=== PATIENT | female | born 1940 | race Caucasian/White ===

== ENCOUNTER 2018-10-11 02:30 | Emergency (ER) | payer MEDICARE, OTHER ==
[~2018-10-11] VITALS: Ht 162.6 cm; Wt 90.7 kg
--- OUTSIDE RECORDS SUMMARY | 2018-10-11 02:34 | XMS ---
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 Walter has no Care Guidelines for this patient. Hima VISIT COUNT (12 MO.) 1 NEDA Tran TOTAL 1 NOTE: Visits indicate total known visits. ED/UCC VISIT TRACKING (12 MO.) 10/11/2018 02:31 NEDA Hernandez [place] TYPE: Emergency COMPLAINT: - BODY PAIN,MUSCLE SPASMS INPATIENT VISIT TRACKING (12 MO.) No inpatient visits to display in this time frame [email or web address]
[2018-10-11] MEDS ORDERED: BIOTIN5000 MCG PO (02:44)
[2018-10-11] MEDS ORDERED: TRIPLE OMEGA C400 MG PO (02:44)
[2018-10-11] MEDS ORDERED: DOXYCYCLINE HY100 MG PO (02:44)
[2018-10-11] MEDS ORDERED: ATENOLOL50 MG PO (02:45)
[2018-10-11] MEDS ORDERED: ZOCOR40 MG PO (02:45)
[2018-10-11] MEDS ORDERED: K-TAB ER20 MEQ PO (02:46)
[2018-10-11] MEDS ORDERED: FUROSEMIDE20 MG PO (02:46)
[2018-10-11] MEDS ORDERED: TRIBENZOR 20-51 EACH PO (02:46)
[2018-10-11] MEDS ORDERED: ASPIRIN81 MG PO (02:47)
[2018-10-11] MEDS ORDERED: CLONAZEPAM0.5 MG PO (02:47)
[2018-10-11] MEDS ORDERED: NORCO 5-325 TA1 EACH PO (04:21)
[2018-10-11] MEDS ORDERED: MELOXICAM15 MG PO (04:21)
== END 2018-10-11 04:35 | disposition home or self-care (01) ==
LOC: ED 02:30
DX: M25.551 Pain in right hip (principal); I10 Essential (primary) hypertension; E78.5 Hyperlipidemia, unspecified; Z87.891 Personal history of nicotine dependence; Z95.1 Presence of aortocoronary bypass graft; Z88.2 Allergy status to sulfonamides; Z79.82 Long term (current) use of aspirin; Z79.899 Other long term (current) drug therapy
CPT/HCPCS: 73502; 96372; 99283-25; J1885

== ENCOUNTER 2019-09-19 03:04 | Emergency (ER) | payer MEDICARE, OTHER ==
[~2019-09-19] VITALS: Ht 162.6 cm; Wt 90.7 kg
[~2019-09-19 03:04] MED LIST: ASPIRIN81 MG PO; ATENOLOL50 MG PO; BIOTIN5000 MCG PO; CLONAZEPAM0.5 MG PO; DOXYCYCLINE HY100 MG PO; FUROSEMIDE20 MG PO; K-TAB ER20 MEQ PO; MELOXICAM15 MG PO; NORCO 5-325 TA1 EACH PO; TRIBENZOR 20-51 EACH PO; TRIPLE OMEGA C400 MG PO; ZOCOR40 MG PO
--- OUTSIDE RECORDS SUMMARY | 2019-09-19 03:06 | XMS ---
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 EMichelle VISIT COUNT (12 MO.) 2 NEDA Tran TOTAL 2 NOTE: Visits indicate total known visits. 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
[2019-09-19] MEDS ORDERED: NORCO 5-325 TA1 EACH PO (05:24)
== END 2019-09-19 06:52 | disposition home or self-care (01) ==
LOC: ED 03:04
DX: S42.214A Unspecified nondisplaced fracture of surgical neck of right humerus, initial encounter for closed fracture (principal); W01.198A Fall on same level from slipping, tripping and stumbling with subsequent striking against other object, initial encounter; I10 Essential (primary) hypertension; E78.5 Hyperlipidemia, unspecified; Z87.891 Personal history of nicotine dependence; Z88.2 Allergy status to sulfonamides; Z79.899 Other long term (current) drug therapy; Z79.82 Long term (current) use of aspirin
CPT/HCPCS: 71045; 72040; 73030; 73060; 73070; 90715; 93971; 99284-25; J1170

== ENCOUNTER 2019-09-21 22:59 | Observation (INO) | payer MEDICARE, OTHER ==
[~2019-09-21] VITALS: Ht 162.6 cm; Wt 96.6 kg
[~2019-09-21 22:59] MED LIST changes: +ASPIR 8181 MG PO; -ASPIRIN81 MG PO; +BENICAR HCT 401 EAC1 PO; -TRIBENZOR 20-51 EACH PO
--- OUTSIDE RECORDS SUMMARY | 2019-09-21 23:02 | XMS ---
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 Hima VISIT COUNT (12 MO.) 3 [facility] TOTAL 3 NOTE: Visits indicate total known visits. ED/UCC VISIT TRACKING (12 MO.) 09/21/2019 22:59 NEDA Hernandez OR TYPE: Emergency COMPLAINT: - FALL 09/19/2019 03:04 NEDA Hernandez OR TYPE: Emergency COMPLAINT: - SHOULDER PAIN DIAGNOSES: - Essential (primary) hypertension - snf (current) use of aspirin - Fall same lev from slip/trip w strike agnst oth object, init - Pain in right shoulder - Hyperlipidemia, unspecified - Allergy status to sulfonamides status - Other longterm (current) drug therapy - Personal history of nicotine dependence - Unsp nondisp fx of surgical neck of right humerus, init 10/11/2018 02:31 NEDA Hernandez [place] TYPE: Emergency COMPLAINT: - R SIDE/HIP PAIN,NON INJURY DIAGNOSES: - snf (current) use of aspirin - Pain in right hip - Presence of aortocoronary bypass graft - Personal history of nicotine dependence - Allergy status to sulfonamides status - Essential (primary) hypertension - Hyperlipidemia, unspecified - 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
--- NOTE | 2019-09-22 08:01 | EKG ---
[facility] [address] [place], [place] [address] Signed Normal sinus rhythm Normal ECG No previous ECGs available Confirmed by CB HART MD ([id number]) on 09/22/2019 8:01:21 AM Electronically Signed By: CB HART MD 09/22/19 0801 PATIENT NAME: LIZANDRO BARTHOLOMEW LEEANN Electrocardiogram DATE OF : 36 PHYSICIAN: CB HART MD REPORT #: [id number] REPORT IS CONFIDENTIAL AND NOT TO BE RELEASED WITHOUT AUTHORIZATION
[2019-09-25] MEDS ORDERED: ATENOLOL50 MG PO ×2 (15:06→15:51)
[2019-09-25] MEDS ORDERED: NORCO 5-325 TA1 EACH PO (15:06)
[2019-09-25] MEDS ORDERED: CLONAZEPAM0.5 MG PO (15:07)
[2019-09-25] MEDS ORDERED: TYLENOL325 MG PO (15:08)
[2019-09-25] MEDS ORDERED: SENNA8.6 MG PO (15:08)
[2019-09-25] MEDS ORDERED: LACTULOSE10 GM/15 M PO (15:09)
[2019-09-25] MEDS ORDERED: TRIPLE OMEGA C400 MG PO (15:51)
[2019-09-25] MEDS ORDERED: BIOTIN5000 MCG PO (15:51)
[2019-09-25] MEDS ORDERED: ZOCOR40 MG PO (15:51)
[2019-09-25] MEDS ORDERED: ASPIR 8181 MG PO (15:51)
== END 2019-09-25 16:15 | disposition home health service (06) ==
LOC: ED 22:59 → MS 23:00
PROVIDERS: ADMIT Internal Medicine
DX: S42.211A Unspecified displaced fracture of surgical neck of right humerus, initial encounter for closed fracture (principal); N28.9 Disorder of kidney and ureter, unspecified; I10 Essential (primary) hypertension; J30.1 Allergic rhinitis due to pollen; E78.5 Hyperlipidemia, unspecified; I25.2 Old myocardial infarction; I25.10 Atherosclerotic heart disease of native coronary artery without angina pectoris; M54.9 Dorsalgia, unspecified; S92.512A Displaced fracture of proximal phalanx of left lesser toe(s), initial encounter for closed fracture; M16.0 Bilateral primary osteoarthritis of hip; F41.9 Anxiety disorder, unspecified; M81.0 Age-related osteoporosis without current pathological fracture; J98.11 Atelectasis; J96.01 Acute respiratory failure with hypoxia; W01.0XXA Fall on same level from slipping, tripping and stumbling without subsequent striking against object, initial encounter; Z88.2 Allergy status to sulfonamides; Z87.891 Personal history of nicotine dependence; Z95.1 Presence of aortocoronary bypass graft; Z79.82 Long term (current) use of aspirin; Z79.899 Other long term (current) drug therapy
CPT/HCPCS: 36415; 51701; 71045; 72020; 72125; 72128; 72131; 73630; 80048; 80053; 81001; 84484; 85025; 87088; 93005; 93010; 94760; 94761; 94762; 96372; 96376; 99285-25; G0378; J1170; J1650; J7121

== ENCOUNTER 2024-04-07 16:24 | Emergency (ER) | payer MEDICARE, OTHER ==
[~2024-04-07] VITALS: Ht 162.6 cm; Wt 92.2 kg
[~2024-04-07 16:24] MED LIST changes: +LACTULOSE10 GM/15 M PO; +SENNA8.6 MG PO; +TYLENOL325 MG PO
[2024-04-07 16:49] LABS: BASOPHILS 0.3 % (0-2); EOSINOPHILS 0.4 % (0-6); HEMATOCRIT 42.8 % (35.0-50.0); LYMPHOCYTES 4.9 % (24-44); MCH 28.1 (27-36); MCHC 32.8 g/dl (30-36); MCV 85.8 fl (81-99); MONOCYTES 7.2 % (0-12); NEUTROPHILS 87.2 % (39-80); PLATELET COUNT 224 K/uL (140-440); RBC 4.99 M/ul (4.3-5.7); RDW 14.7 (10.5-15.0)
[2024-04-07 17:13] LABS: ALBUMIN 3.4 g/dL (3.4-5.0); ALBUMIN/GLOBULIN RATIO 0.81 (1.1-2.4); ANION GAP 12.4 (7-21); BILIRUBIN, TOTAL 0.8 ng/dL (0.2-1.0); BUN/CREATININE RATIO 13.25 (6.0-28.6); CALCIUM 8.8 mg/dL (8.5-10.1); CREATININE, SERUM 1.66 mg/dL (0.55-1.02); POTASSIUM 4.4 mmol/L (3.5-5.1); PROTEIN, TOTAL 7.6 g/dL (6.4-8.2)
[2024-04-07 18:50] LABS: BILIRUBIN, URINE NEGATIVE (negative); BLOOD/HGB, URINE SMALL (Negative); KETONE, URINE NEGATIVE (Negative); LEUK ESTERASE, URINE MODERATE (negative); NITRITE, URINE NEGATIVE (negative); PH, URINE 5.5 (5-7)
[2024-04-07 18:57] LABS: EPITHELIAL CELLS, URINE SQUAMOUS 4+ /lpf (0-1+)
[2024-04-07 18:58] LABS: BACTERIA, URINE RARE /hpf (negative); CASTS, URINE NONE SEEN \\lpf; COLLECTION TYPE, URINE CLEAN CATCH; CRYSTALS, URINE NONE SEEN (0-1+); REFLEX CULTURE, URINE No (No)
[2024-04-07] MEDS ORDERED: CEPHALEXIN250 M1 PO (19:14)
[2024-04-07] MEDS ORDERED: CEPHALEXIN MONOHYDRATE 250 MG CAP PO ONE (19:15)
[2024-04-07 19:28] VITALS: BP 150/72
--- NOTE | 2024-04-08 10:42 | EKG ---
[facility] [address] [place] [address] Signed Unusual P axis, possible ectopic atrial rhythm Nonspecific T wave abnormality Abnormal ECG When compared with ECG of 21-SEP-2019 23:20, Ectopic atrial rhythm has replaced Sinus rhythm T wave inversion now evident in Anterior leads Confirmed by Jane James MD ([id number]) on 04/08/2024 10:42:41 AM Electronically Signed By: JANE JAMES 04/08/24 1042 PATIENT NAME: LIZANDRO BARTHOLOMEW LEEANN Electrocardiogram DATE OF : 36 PHYSICIAN: JANE JAMES REPORT #: [id number] REPORT IS CONFIDENTIAL AND NOT TO BE RELEASED WITHOUT AUTHORIZATION
== END 2024-04-07 19:28 | disposition home or self-care (01) ==
LOC: ED 16:24
PROVIDERS: Emergency Medicine
DX: N39.0 Urinary tract infection, site not specified (principal); I10 Essential (primary) hypertension; I25.2 Old myocardial infarction; E78.5 Hyperlipidemia, unspecified; Z99.81 Dependence on supplemental oxygen; Z87.891 Personal history of nicotine dependence; Z88.2 Allergy status to sulfonamides; Z79.899 Other long term (current) drug therapy
CPT/HCPCS: 36415; 71045; 80053; 81001; 83735; 84484; 85025; 93005; 93010; 99285-25

== ENCOUNTER 2024-08-28 11:57 | Emergency (ER) | payer MEDICARE, OTHER ==
[~2024-08-28] VITALS: Ht 162.6 cm; Wt 99.8 kg
[~2024-08-28 11:57] MED LIST changes: +CEPHALEXIN250 M1 PO
[2024-08-28] MEDS ORDERED: CEFTRIAXONE/SODIUM CHLORIDE 1 GM/100 ML PIGGYBACK IV ONE (13:30)
[2024-08-28 13:57] LABS: ALBUMIN 3.2 g/dL (3.4-5.0); ALBUMIN/GLOBULIN RATIO 0.73 (1.1-2.4); ANION GAP 10.8 (7-21); BILIRUBIN, TOTAL 0.3 ng/dL (0.2-1.0); BUN/CREATININE RATIO 11.88 (6.0-28.6); CALCIUM 8.8 mg/dL (8.5-10.1); CREATININE, SERUM 1.43 mg/dL (0.55-1.02); POTASSIUM 4.8 mmol/L (3.5-5.1); PROTEIN, TOTAL 7.6 g/dL (6.4-8.2)
[2024-08-28 14:01] LABS: BASOPHILS 0.7 % (0-2); EOSINOPHILS 1.1 % (0-6); HEMATOCRIT 42.7 % (35.0-50.0); LYMPHOCYTES 14.7 % (24-44); MCHC 32.9 g/dl (30-36); MONOCYTES 7.9 % (0-12); NEUTROPHILS 75.6 % (39-80); PLATELET COUNT 195 K/uL (140-440); RBC 4.85 M/ul (4.3-5.7); RDW 15.2 (10.5-15.0)
[2024-08-28] MEDS ORDERED: CEPHALEXIN500 M1 PO (15:06)
[2024-08-28] MEDS ORDERED: BACTRIM DS TAB1 EACH PO (15:06)
[2024-08-28 15:46] VITALS: BP 158/48
== END 2024-08-28 15:50 | disposition home or self-care (01) ==
LOC: ED 11:57
PROVIDERS: Emergency Medicine
DX: L03.115 Cellulitis of right lower limb (principal); I10 Essential (primary) hypertension; E78.5 Hyperlipidemia, unspecified; I25.2 Old myocardial infarction; Z87.891 Personal history of nicotine dependence; Z99.81 Dependence on supplemental oxygen; Z95.1 Presence of aortocoronary bypass graft; Z88.2 Allergy status to sulfonamides; Z79.899 Other long term (current) drug therapy; R22.41 Localized swelling, mass and lump, right lower limb
CPT/HCPCS: 36415; 80053; 85025; 93971; 96365; 96366; 99284-25; J0696